=== PATIENT | female | born 1950 | race Caucasian/White ===

== ENCOUNTER → 2017-03-03 08:44 | Outpatient (CLI) | payer OTHER, MEDICARE ==
[2016-08-20 14:01] VITALS: BMI 32.5
[~2017-03-03 08:44] MED LIST: BAYER CHEWABLE81 MG PO; COREG6.25 MG PO; CRESTOR10 MG PO; EFFIENT10 MG PO; FISH OIL 1,0001 CA1 PO; FORTAMET1000 MG/BO PO; GLIPIZIDE10 MG PO; KAZANO 12.5-1,1 EACH PO; KAZANO PO; KLOR-CON M2020 MEQ PO; LASIX20 MG PO; LEVOXYL100 MCG PO; LISINOPRIL10 MG PO; LISINOPRIL5 MG PO; PLAVIX75 MG PO; VYTORIN 10-40 M1 TAB PO; entresto PO
== END ==
LOC: D.MAMMO 08:44
DX: Z12.31 Encounter for screening mammogram for malignant neoplasm of breast (principal)

== ENCOUNTER → 2017-04-04 16:40 | Outpatient (CLI) | payer OTHER, MEDICARE ==
[2016-08-20 14:01] VITALS: BMI 32.5
== END | disposition home or self-care (01) ==
LOC: D.MAMMO 08:30
DX: R92.8 Other abnormal and inconclusive findings on diagnostic imaging of breast (principal)

== ENCOUNTER → 2017-10-08 13:17 | Outpatient (CLI) | payer MEDICARE ==
[2016-08-20 14:01] VITALS: BMI 32.5
== END | disposition home or self-care (01) ==
LOC: D.MAMMO 09:00
DX: R92.8 Other abnormal and inconclusive findings on diagnostic imaging of breast (principal)

== ENCOUNTER 2017-10-11 19:10 | Inpatient (IN) | payer MEDICARE | END 2017-10-16 16:20 | disposition home or self-care (01) | DRG 291 | LOC: D.ER 19:10 → D.SDCHOLD 21:07 → D.MS 21:55 → D.M2 10-12 14:45 | DX: I11.0 Hypertensive heart disease with heart failure (principal); J96.21 Acute and chronic respiratory failure with hypoxia; N17.9 Acute kidney failure, unspecified; J44.0 Chronic obstructive pulmonary disease with (acute) lower respiratory infection; J98.11 Atelectasis; I50.23 Acute on chronic systolic (congestive) heart failure; I25.5 Ischemic cardiomyopathy; E78.5 Hyperlipidemia, unspecified; K21.9 Gastro-esophageal reflux disease without esophagitis; J20.9 Acute bronchitis, unspecified; E11.65 Type 2 diabetes mellitus with hyperglycemia; E03.9 Hypothyroidism, unspecified; I25.10 Atherosclerotic heart disease of native coronary artery without angina pectoris; Z95.5 Presence of coronary angioplasty implant and graft; D64.9 Anemia, unspecified ==

== ENCOUNTER 2017-12-12 17:47 | Emergency (ER) | payer MEDICARE ==
[2017-10-13 12:21] VITALS: BMI 32.4
[~2017-12-12 17:47] MED LIST changes: +VIBRAMYCIN 100100 MG PO
== END 2017-12-12 21:02 | disposition home or self-care (01) ==
LOC: D.ER 17:47
DX: S20.219A Contusion of unspecified front wall of thorax, initial encounter (principal); V89.2XXA Person injured in unspecified motor-vehicle accident, traffic, initial encounter; Y93.89 Activity, other specified; Y92.410 Unspecified street and highway as the place of occurrence of the external cause; E11.9 Type 2 diabetes mellitus without complications; E03.9 Hypothyroidism, unspecified; I50.9 Heart failure, unspecified

== ENCOUNTER → 2018-05-26 08:41 | Outpatient (CLI) | payer MEDICARE ==
[2017-10-13 12:21] VITALS: BMI 32.4
== END | disposition home or self-care (01) ==
LOC: D.RT 08:41
DX: Z87.09 Personal history of other diseases of the respiratory system (principal); Z87.891 Personal history of nicotine dependence

== ENCOUNTER 2019-05-25 09:15 | Outpatient (CLI) | payer MEDICARE ==
[2017-10-13 12:21] VITALS: BMI 32.4
== END 2019-05-25 09:45 | disposition home or self-care (01) ==
LOC: D.MAMMO 09:15
PROVIDERS: ATTEND Clinical Nurse Specialist Family Health
DX: Z12.31 Encounter for screening mammogram for malignant neoplasm of breast (principal)

== ENCOUNTER → 2020-05-19 15:02 | Outpatient (CLI) | payer MEDICARE ==
[2017-10-13 12:21] VITALS: BMI 32.4
== END | disposition home or self-care (01) ==
LOC: D.LAB 15:02
PROVIDERS: ATTEND Internal Medicine Pulmonary Disease
DX: Z11.59 Encounter for screening for other viral diseases (principal)

== ENCOUNTER 2020-06-03 22:55 | Inpatient (IN) | payer MEDICARE ==
[~2020-06-03] VITALS: Ht 157.5 cm; Wt 81.6 kg
--- NOTE | ~2020-06-03 | HEMODYNAMI ---
PATIENT:ROYA CONNELL MEDICAL RECORD: [id number] : 50 [facility] ADMISSION DATE: 06/04/20 Generatedon:06/05/202011:13 Patient name: ROYA CONNELL Patient #: [id number] SSN: [id number] : 1950 Date of study: 06/05/2020 Page: Of Hemodynamic Procedure Report Patient Data Patient Demographics Procedure consent was obtained First Name: ROYA Gender: Female Last Name: KO : 1950 [facility] Initial: KATHARINA Age: 69 year(s) Patient #: [id number] Race: SSN: [id number] Additional ID: [id number] Contact details Address: [address] [place] [address] circle State: [place] City: [place] Zip code: [address] Past Medical History Allergies: No known allergies Admission Admission Data Admission Date: 06/04/2020 Admission Time: 0:09 Room #: D.2108 Lab Results Lab Result Date: 06/05/2020 Lab Result Time: 0:00 Biochemistry Name Units Result Min Max BUN mg/dl 37 --(----)-* 7 18 Creatinine mg/dl 1.5 --(----)-* 0.6 1.3 eGFR ml/min 36 *-(----)-- 90 120 NONAFRICAN CBC Name Units Result Min Max Hematocrit % 37.9 *-(----)-- 42 54 Hemoglobin g/dl 12.3 *-(----)-- 13.5 17.5 Procedure Procedure Types Cath Procedure Diagnostic Procedure [facility] w/Coronaries Sedation Charges Moderate Sedation up to 30 minutes Moderate Sedation up to 45 minutes Impella Impella Insertion PCI Procedure Coronary Stent Coronary Stent Initial Hemochron ACT Test Procedure Description Procedure Date Procedure Date: 06/05/2020 Procedure Start Time: 9:20 Procedure End Time: 11:10 Procedure Staff Name Function Dewey Howe MD Performing Physician Samantha Pritchett RT Monitor Philippe Colvin RN Nurse Marilyn Swift RT Scrub Procedure Data Cath Procedure Fluoroscopy Diagnostic fluoroscopy Total fluoroscopy Time: time: 18.2 min 18.2 min Diagnostic fluoroscopy Total fluoroscopy dose: dose: 1503 mGy 1503 mGy Contrast Material Contrast Material Type Amount (ml) Isovue 300 147 Entry Location Entry Primary Successful Side Size Upsize Upsize Entry Closure Almeida ccessful Closure Location (Fr) 1 (Fr) 2 (Fr) Remarks Device Remarks Radial Right 6 Fr Mechanical artery Short Compression Femoral Right 6 Fr Perclose artery Short ProGlide Estimated blood loss: 10 ml Diagnostic catheters Device Type Used For End Catheter Placement DIAGNOSTIC Samaria 110cm 5 Procedure Fr catheter ([id number]) DIAGNOSTIC JL 3.5 5Fr Left Coronary catheter (828994M) Angiography DIAGNOSTIC JL 3.5 5Fr Left Coronary catheter (340386M) Angiography DIAGNOSTIC Pigtail 5Fr LV Angiography catheter (912714T) DIAGNOSTIC Pigtail 5Fr Procedure catheter (558609V) Procedure Complications No complications Procedure Medications Medication Administration Route Dosage 0.9% NaCl I.V. 100 ml/hr Oxygen etCO2 Nasal cannula 2 l/min Heparin Flush Bag 2 bags (1000units/500ml NS) Lidocaine 2% added to field 20 Radial Cocktail added to field 1 syringe (Verapamil 2mg/Nitro 400mcg/Heparin 1500units) Versed I.V. 1 mg Fentanyl I.V. 50 mcg Radial Cocktail I.A. 1 syringe (Verapamil 2mg/Nitro 400mcg/Heparin 1500units) Fentanyl I.V. 50 mcg Heparin Bolus I.V. 5000 units Versed I.V. 1 mg Integrilin (Bolus I.V. 7.3 ml 2mg/ml) Integrilin (Bolus I.V. 2.7 ml 2mg/ml) Plavix P.O. 600 mg Hemodynamics Rest HGB: 12.3 (g/dl) Heart Rate: 65 (bpm) Pressure Samples Time Site Value (mmHg) Purpose Heart Use Rate(bpm) 9:37 LV 107/7,8 Snapshot 72 Gradients Valve Time Site Site Mean SEP/DFP Peak To Heart Use 1 2 (mmHg) (sec/min) Peak Rate (mmHg) (bpm) Aortic 9:37 LV AO 73 Snapshots Pre Cath Intra NCS Post Cath Vital Signs Time Heart Resp SPO2 etCO2 NIBP (mmHg) Rhythm Pain Sedation Rate (ipm) (%) (mmHg) Status Level (bpm) 9:15:21 66 14 100 36.2 130/65(110) NSR 0 (11) 10(A) , No pain 9:19:39 68 12 97 37.7 115/61(88) NSR 0 (11) 10(A) , No pain 9:23:55 66 19 99 3.7 110/59(73) NSR 0 (11) 10(A) , No pain 9:28:15 64 17 99 42.3 108/51(83) NSR 0 (11) 10(A) , No pain 9:32:29 62 12 100 40 94/52(74) NSR 0 (11) 10(A) , No pain 9:36:39 74 12 100 34 96/61(77) NSR 0 (11) 10(A) , No pain 9:40:49 71 12 100 40.8 99/66(80) NSR 0 (11) 10(A) , No pain 9:45:03 74 10 100 41.5 103/58(74) NSR 0 (11) 10(A) , No pain 9:49:13 59 12 100 15.1 103/54(72) NSR 0 (11) 10(A) , No pain 9:53:25 59 12 100 41.6 100/51(70) NSR 0 (11) 10(A) , No pain 9:57:37 59 14 100 40.8 105/51(93) NSR 0 (11) 10(A) , No pain 10:01:51 59 11 100 44.5 101/50(80) NSR 0 (11) 10(A) , No pain 10:06:03 80 11 100 44.5 101/53(89) NSR 0 (11) 10(A) , No pain 10:10:14 60 10 100 36.2 92/51(85) NSR 0 (11) 10(A) , No pain 10:14:29 60 12 100 13.6 107/50(89) NSR 0 (11) 10(A) , No pain 10:18:40 56 11 100 37 96/49(61) NSR 0 (11) 10(A) , No pain 10:22:57 61 11 100 25.7 99/48(65) NSR 0 (11) 9(A) , No pain 10:27:06 66 12 100 16.6 103/68(84) NSR 0 (11) 9(A) , No pain 10:31:18 64 11 100 0.7 108/65(87) NSR 0 (11) 9(A) , No pain 10:35:32 64 12 100 9.8 110/65(88) NSR 0 (11) 9(A) , No pain 10:39:44 67 13 100 17.4 120/73(100) NSR 0 (11) 9(A) , No pain 10:43:58 67 13 100 40 134/78(105) NSR 0 (11) 9(A) , No pain 10:48:20 61 13 100 37.8 133/61(105) NSR 0 (11) 9(A) , No pain 10:52:40 60 10 100 37.8 124/63(99) NSR 0 (11) 9(A) , No pain 10:56:52 64 15 100 39.3 120/70(104) NSR 0 (11) 10(A) , No pain 11:01:12 63 13 100 37.8 118/64(100) NSR 0 (11) 10(A) , No pain 11:05:26 64 12 100 40 137/74(110) NSR 0 (11) 10(A) , No pain 11:09:49 59 13 100 37 136/73(114) NSR 0 (11) 10(A) , No pain Medications Time Medication Route Dose Verified Delivered Reason Not es Effectiveness by by 9:15:10 0.9% NaCl I.V. 100 Philippe Philippe Per physician ml/hr Vinicius Colvin RN RN 9:15:23 Oxygen etCO2 2 l/min Philippe Philippe for low 02 sats Nasal Lorigan Lorigan cannula RN RN 9:15:33 Heparin Flush 2 bags Philippe Philippe used for Bag Lorigan Lorigan procedure (1000units/500ml RN RN NS) 9:15:43 Lidocaine 2% added 20ml Philippe Philippe for local to vial Lorigan Lorigan anesthetic field RN RN 9:15:54 Radial Cocktail added 1 Philippe Philippe used for (Verapamil to syringe Lorigan Lorigan procedure 2mg/Nitro field RN RN 400mcg/Heparin 1500units) 9:21:02 Versed I.V. 1 mg Philippe Philippe for sedation Vinicius Colvin RN RN 9:21:11 Fentanyl I.V. 50 mcg Philippe Philippe for sedation Vinicius Colvin RN RN 9:23:07 Radial Cocktail I.A. 1 Philippe Dewey for (Verapamil syringe Lorigan Hurst vasodilation 2mg/Nitro RN 400mcg/Heparin 1500units) 9:46:21 Fentanyl I.V. 50 mcg Philippe Philippe for sedation Vinicius Colvin RN RN 9:46:32 Heparin Bolus I.V. 5000 Philippe Philippe for units Vinicius Colvin anticoagulation RN RN 10:03:11 Versed I.V. 1 mg Philippe Philippe for sedation Vinicius Colvin RN RN 10:19:42 Integrilin I.V. 7.3 ml Philippe Philippe for (Bolus 2mg/ml) Vinicius Colvin antiplatelet RN RN therapy 10:19:54 Integrilin I.V. 2.7 ml Philippe Philippe to sharp's (Bolus 2mg/ml) Vinicius Colvin RN RN 11:03:30 Plavix P.O. 600 mg Philippe Philippe for Vinicius Colvin antiplatelet RN RN therapy Procedure Log Time Note 8:30:24 Informed consent obtained and on chart 8:32:34 Lab Result : eGFR NONAFRICAN 36 ml/min 8:32:34 Lab Result : Creatinine 1.5 mg/dl 8:32:34 Lab Result : BUN 37 mg/dl 8:32:34 Lab Result : Hematocrit 37.9 % 8:32:34 Lab Result : Hemoglobin 12.3 g/dl 8:33:00 Procedure Status Urgent Heart Cath (IP). 8:33:04 Time tracking: Regular hours (M-F 7:00 - 5:00) 8:33:20 Patient allergic to No known allergies 8:42:50 Lab results completed and on chart. 8:42:56 Risk of Mortality: 0.9 8:43:02 Risk of blood transfusion: 3.8 8:43:07 Risk of KAYLYNN: 4.3 8:53:42 Philippe Colvin RN sent for patient. Start room use. 8:53:50 Plan of Care:Hemodynamics will remain stable., Cardiac rhythm will remain stable., Comfort level will be maintained., Respiratory function will remain adequate., Patient/ family verbilizes understanding of procedure., Procedure tolerated without complication., Recovers from procedure without complications.. 9:13:53 Patient received from Med II to CCL 1 Alert and oriented. Tansferred to table in Supine position. 9:13:59 Warm blankets applied, and inderjit hugger turned on for patient comfort. 9:14:00 Correct patient and procedure confirmed by team. 9:14:02 ECG and BP/O2 sat monitors applied to patient. 9:14:04 Vital chart was started 9:14:19 Baseline sample Acquired. 9:14:30 Rhythm: sinus rhythm 9:14:33 Full Disclosure recording started 9:14:34 - 9:14:41 H&P Date Dictated: 06/05/2020 Within 30 days and on chart., ER History o n chart.. 9:14:43 Pre-procedure instructions explained to patient. 9:14:44 Pre-op teaching completed and patient verbalized understanding. 9:14:46 Family unavailable. 9:14:48 Patient NPO since Midnight. 9:14:56 Is the patient allergic to Iodine/contrast media? No. 9:14:59 Was the patient premedicated? Yes 9:15:02 Is patient on blood thinner?No 9:15:05 Patient diabetic? Yes. 9:15:07 If diabetic: On Metformin? Yes 9:15:10 0.9% NaCl 100 ml/hr I.V. was administered by Philippe Colvin RN; Per physician; Verbal order read back and verified. 9:15:12 If on Metformin: Last Dose? 06/03/2020 9:15:15 ----Pre-sedation anethsthesia assessment.---- 9:15:20 Previous problem with sedation/anesthesia? No ? 9:15:23 Oxygen 2 l/min etCO2 Nasal cannula was administered by Philippe Colvin RN; for low 02 sats; Verbal order read back and verified. 9:15:33 Heparin Flush Bag (1000units/500ml NS) 2 bags was administered by Philippe Colvin RN; used for procedure; Verbal order read back and verified. 9:15:35 Snore? Yes 9:15:37 Sleep apnea? Yes 9:15:39 Deviated septum? No 9:15:42 Opens mouth fully? Yes 9:15:43 Lidocaine 2% 20ml vial added to field was administered by Philippe Colvin RN; for local anesthetic; Verbal order read back and verified. 9:15:44 Sticks out tongue? Yes 9:15:51 Airway obstruction? Yes copd 9:15:54 Radial Cocktail (Verapamil 2mg/Nitro 400mcg/Heparin 1500units) 1 syring e added to field was administered by Philippe Colvin RN; used for procedure; Verbal order read back and verified. 9:15:57 Dentures? No ? 9:16:04 Pre procedure: right dorsailis pedis pulse 1+ Palpable, but thready & weak; easily obliterated 9:16:11 IV patent on arrival in right antecubital with 0.9% NaCl at KVO. 9:16:19 Right Radial & Right Groin area was prepped with chlora-prep and draped in sterile fashion 9:16:23 Alarms reviewed by R. N. 9:16:24 Sharps counted by scrub and verified by R.N. 9:16:29 Physician arrived 9:16:29 --------ALL STOP TIME OUT------ 9:16:30 Final Timeout: patient, procedure, and site verified with staff and physician. All members of the team are in agreement. 9:16:34 Right Radial & Right Groin site verified by team. 9:16:39 Fire Safety Assessment: A--An alcohol-based skin anteseptic being used preoperatively., C--Open oxygen or nitrous oxide is being used., D--An ESU, laser, or fiber-optic light is being used. 9:16:43 Physical assessment completed. ASA score P 2 - A patient with mild systemic disease as per Dewey Howe MD. 9:16:50 3b) 30-44 Moderately reduced kidney function. 9:16:54 Maximum allowable contrast dose (3.7 X eGFR X 0.75)100 ml. 9:16:59 Sedation plan: IV Moderate Sedation Medication:Versed, Fentanyl 9:17:08 Use device set Radial Dx or PCI 9:17:10 ACIST Syringe (99632) opened to sterile field. 9:17:10 Medline Cath Pack ([id number]) opened to sterile field. 9:17:11 Bag Decanter (2002) opened to sterile field. 9:17:13 ACIST Hand Control (90185) opened to sterile field. 9:17:13 ACIST Manifold (02072) opened to sterile field. 9:17:14 MBrace Wrist Support ([id number]) opened to sterile field. 9:17:16 EMERALD Guide Wire (351-827) opened to sterile field. 9:17:17 SHEATH 6FR RAIN (8306291) opened to sterile field. 9:20:38 Procedure started. 9:20:58 Local anesthetic to right femoral artery with Lidocaine 2% by Dewey Mcginnis MD.INITIAL ACCESS ONLY 9:21:02 Versed 1 mg I.V. was administered by Philippe Colvin RN; for sedation; Verbal order read back and verified. 9:21:09 Zero performed for pressure channel P1 9:21:11 Fentanyl 50 mcg I.V. was administered by Philippe Colvin RN; for sedation; Verbal order read back and verified. 9:21:28 Zero performed for pressure channel P1 9:22:52 A 6 Fr Short sheath was inserted into the Right Radial artery 9:23:07 Radial Cocktail (Verapamil 2mg/Nitro 400mcg/Heparin 1500units) 1 syring e I.A. was administered by Dewey Howe MD; for vasodilation; Verbal order read back and verified. 9:23:34 A DIAGNOSTIC Samaria 110cm 5 Fr catheter (202563) was advanced over the wire and used for Procedure. 9:26:29 RCA angiography performed. 9:26:56 Injector settings: Ml/sec: 3, Volume: 6, 9:27:52 Catheter removed. 9:28:35 GUIDE 6FR XBLAD 3.5 catheter ([id number]) opened to sterile field. 9:29:31 Catheter removed. 9:30:11 A DIAGNOSTIC JL 3.5 5Fr catheter ([id number]) was advanced over the wire and used for Left Coronary Angiography. 9:31:56 Catheter removed. 9:32:08 SHEATH 6FR [place] (IFZ328) opened to sterile field. 9:32:27 Local anesthetic to right femoral artery with Lidocaine 2% by Dewey Mcginnis MD.ADDITIONAL ACCESS 9:33:41 A 6 Fr Short sheath was inserted into the Right Femoral artery 9:34:17 A DIAGNOSTIC JL 3.5 5Fr catheter (991938S) was advanced over the wire and used for Left Coronary Angiography. 9:34:36 LCA angiography performed. 9:34:42 Injector settings: Ml/sec: 3, Volume: 6, 9:36:21 Catheter removed. 9:36:30 A DIAGNOSTIC Pigtail 5Fr catheter (272483W) was advanced over the wire and used for LV Angiography. 9:36:46 Injector settings: Ml/sec: 5, Volume: 15, 9:36:52 LV gram done using ROJAS 9:39:20 EF : 20 % 9:39:22 LV hemodynamics recorded. 9:40:04 Catheter removed. 9:40:59 Injector settings: Ml/sec: 3, Volume: 6, 9:41:28 AN INJECTION IS MADE THRU THE RIGHT FEMERAL SHEATH. 9:45:19 Impella CP (with Smart Assist) opened to sterile field. 9:46:21 Fentanyl 50 mcg I.V. was administered by Philippe Colvin RN; for sedation; Verbal order read back and verified. 9:46:30 GUIDE 6FR HS I SH catheter ([id number]) opened to sterile field. 9:46:32 Heparin Bolus 5000 units I.V. was administered by Philippe Colvin RN; for anticoagulation; Verbal order read back and verified. 9:46:32 INFLATOR Merit BasixCompak (OE9088) opened to sterile field. 9:46:43 Tegaderm 4 x 4 (1626W) opened to sterile field. 9:47:38 WHISPER 300cm guide wire (3653846LD) opened to sterile field. 9:48:49 PERCLOSE Proglide 6FR ( 72093516) opened to sterile field. 9:48:50 PERCLOSE Proglide 6FR ( 38169149) opened to sterile field. 9:49:30 Prior to Impella insertion patient anticoagulated with HEPRIN. 9:50:47 GUIDEWIRE IS INSERTED AND THE SHEATH IS REMOVED TO ADVANCE PERCLOSE DEVICE. 9:54:37 IMPELLA REP: GAVINO HALL IS AT BEDSIDE FOR PROCEDURE. 10:03:11 Versed 1 mg I.V. was administered by Pihlippe Colvin RN; for sedation; Verbal order read back and verified. 10:03:30 FIRST PERCLOSE IS INPLACE. 10:06:57 AMPLATZ WIRE INSERTED. 10:07:05 THE SECOND PERCLOSE DEVICE IS LOADED OVER WIRE AND ADVANCED. 10:10:03 THE SECOND PERCLOSE IS INPLACE FOR END OF PROCEDURE. 10:11:45 FEMORAL ACCESS IS DILATED FOR THE ADVANCEMENT OF THE 14 STATELESS SHEATH. 10:14:03 ACT drawn and resulted at ? seconds. (normal therapeutic range 180-240 seconds). 10:15:39 A DIAGNOSTIC Pigtail 5Fr catheter (333093K) was advanced over the wire and used for Procedure. 10:15:52 EMERALD Guide Wire (931-250) opened to sterile field. 10:17:27 ACT drawn and resulted at 258 seconds. (normal therapeutic range 180-24 0 seconds). 10:19:42 Integrilin (Bolus 2mg/ml) 7.3 ml I.V. was administered by Philippe Colvin RN; for antiplatelet therapy; Verbal order read back and verified. 10:19:54 Integrilin (Bolus 2mg/ml) 2.7 ml I.V. was administered by Philippe Colvin RN; to sharp's; Verbal order read back and verified. 10:20:07 THE J WIRE IS REMOVED AND REPLACED WITH THE 0.18WIRE. 10:21:08 THE PIGTAIL IS REMOVED AND THE IMPELLA IS ADVANCED. 10:22:49 SHEATH 7FR [place] (BIC985) opened to sterile field. 10:24:31 THE WIRE IS REMOVED. 10:25:03 Impella set at AUTO and flow rate. 10:25:16 Impella pressure set to AUTO and placement confirmed with Flouro and console waveform. 10:27:43 7 FRECH SHEATH IS INSERTED INTO THE IMPELLA SHEATH. 10:28:22 ACC Pre-intervention JOYCE Flow is 3. 10:28:39 6 Fr HSI SH guide catheter was inserted over the wire 10:28:53 Pre PCI Site: [place] pRCA has 95% stenosis. 10:30:53 BMW 300cm [place] 2 J wire ([id number]) opened to sterile field. 10:31:36 NVL824 wire advanced. 10:32:11 Wire advanced across lesion. 10:35:24 Inflate balloon Inflation number: 1 A EUPHORA 3.0 x 15 Balloon ([id number]) was prepped and advanced across the Prox RCA , then inflated to 4 HELGA for 0:24 (min:sec) . 10:35:33 Balloon removed over the wire. 10:38:22 Place stent Inflation Number: 2 A JENARO OTW 3.5 x 12 stent ([id number]) was prepped and advanced across the Prox RCA . The stent was deployed at 18 HELGA for 0:33 (min:sec) . 10:39:00 Stent catheter was removed intact over wire. 10:42:14 Inflate balloon Inflation number: 3 A NC EUPHORA 4.0 x 12 balloon ([id number]) was prepped and advanced across the Prox RCA , then inflated to 12 HELGA for 0:16 (min:sec) . 10:42:35 Inflation number: 4 The NC EUPHORA 4.0 x 12 balloon ([id number]) was reinflated across the Prox RCA , to 18 HELGA for 0:13 (min:sec) . 10:42:55 Inflation number: 5 The NC EUPHORA 4.0 x 12 balloon ([id number]) was reinflated across the Prox RCA , to 14 HELGA for 0:12 (min:sec) . 10:43:54 Inflation number: 6 The NC EUPHORA 4.0 x 12 balloon ([id number]) was reinflated across the Prox RCA , to 18 HELGA for 0:20 (min:sec) . 10:44:42 Balloon removed over the wire. 10:44:58 Wire removed. 10:44:59 Guide catheter removed. 10:45:54 THE 7 FRECH SHEATH IS REMOVED FROM THE IMPELLA SHEATH. 10:46:06 Post PCI Site: [place] pRCA has 0% stenosis. 10:46:10 ACC Post-intervention JOYCE Flow is 3. 10:47:26 IMPELLA IS REMOVED AFTER STEP DOWN. 10:48:41 THE J WIRE IS REINSERTED INTO THE SHEATH. 10:55:20 THE FIRST PERCLOSE SUTURE IS TIED IN PLACE AND THE 14 STATELESS SHEATH IS REMOVE. 10:58:58 tHE SECOND PERCLOSE KNOT IS ADVANCED AND THE WIRE IS REMOVED. 11:00:46 Sheath removed intact; hemostasis achieved with Perclose ProGlide to th e Right Femoral artery. 11:01:01 ZEPHYR REGULAR TR BAND (213916) opened to sterile field. 11:01:51 Sheath removed intact; hemostasis achieved with Mechanical Compression to the Right Radial artery. 11:01:56 Procedure ended.(Physican Out) 11:02:04 Fluoroscopy time 18.20 minutes. 11:02:10 Flurop Dose total: 1503 11:02:10 Fluoroscopy dose: 1503 mGy 11:02:37 Dose Area Product 05080 mGy/cm. 11:02:57 Contrast amount:Isovue 300 147ml. 11:03:01 Maximum allowable dose exceeded? Yes. 11:03:03 Sharps counted by scrub and verified by R.N. 11:03:07 Hyampom band inflated with 10cc of air. 11:03:13 Post-op/insertion site Right Femoral artery dressed using a 4 x 4 and Tegaderm. 11:03:23 Post right femoral artery:stable 11:03:28 Post-procedure physical assessment completed. ASA score P 2 - A patient with mild systemic disease as per Dewey Howe MD. 11:03:30 Plavix 600 mg P.O. was administered by Philippe Colvin RN; for antiplatelet therapy; Verbal order read back and verified. 11:03:33 Post procedure rhythm: unchanged. 11:03:38 Estimated blood loss: 10 ml 11:03:40 Post procedure instruction explained to patient.Patient verbalizes understanding. 11:03:41 Patient needs reinforcement of post procedure teaching. 11:07:14 Procedure type changed to Cath procedure, Diagnostic procedure, LHC, LH C w/Coronaries, Sedation Charges, Moderate Sedation up to 30 minutes, Moderate Sedation up to 45 minutes, Impella, Impella Insertion, PCI procedure, Coronary Stent, Coronary Stent Initial, Hemochron ACT Test 11:07:17 Procedure and supply charges have been captured, reviewed, submitted an d are correct. 11:09:37 Procedure Complication : No complications 11:09:41 Vital chart was stopped 11::43 [facility] Findings: MVD- PCI performed (see procedure note) 11:09:46 See physician's report for complete and final results. 11:09:49 Report given to [facility]. 11:09:54 Patient transfered to [facility] with Bed. 11:10:39 Procedure ended. 11:10:39 Full Disclosure recording stopped 11:11:21 ACC-PCI Only Patient was given prescriptions, or instructed by Dewey Howe MD to start/continue the following medications upon discharge: Plavix 11:11:23 End room use (Document Last) Intervention Summary Intervention Notes Time ActionType Lesion and Equipment Action# Pressure Duration Attributes Used 10:35:24 Inflate Prox RCA EUPHORA 3.0 x 1 4 00:24 balloon 15 Balloon ([id number]) 10:38:22 Place stent Prox RCA JENARO OTW 3.5 2 18 00:33 x 12 stent ([id number]) 10:42:14 Inflate Prox RCA NC EUPHORA 3 12 00:16 balloon 4.0 x 12 balloon ([id number]) 10:42:35 Reinflate Prox RCA NC EUPHORA 4 18 00:13 balloon 4.0 x 12 balloon ([id number]) 10:42:55 Reinflate Prox RCA NC EUPHORA 5 14 00:12 balloon 4.0 x 12 balloon ([id number]) 10:43:54 Reinflate Prox RCA NC EUPHORA 6 18 00:20 balloon 4.0 x 12 balloon ([id number]) Device Usage Item Name Manufacture Quantity Catalog [facility] Lot# / Number Charge Number Stock Stock Serial# Code ACIST Syringe Acist 1 02267 001560 020900 837452 20 (27992) Medical Systems Inc Medline Cath Medline 1 [id number] 652274 11941 214911 5 Pack ([id number]) Bag Decanter Microtek 1 156940 17078 734813 5 () Medical Inc. ACIST Hand Acist 1 46771 953188 762732 131200 5 Control Medical (23431) Systems Inc ACIST Acist 1 98859 342866 521451 097160 5 Manifold Medical (46249) Systems Inc MBrace Wrist Advanced 1 140-0250-00 031918 21495 117793 5 Support Vascular (975253550) Dynamics EMERALD Guide Cardinal 2 502-455 079334 185032 948754 5 Wire Health (502-455) SHEATH 6FR Cardinal 1 6810213 776430 4440182 391855 5 [facility] Health (8925507) DIAGNOSTIC Terumo 1 40-5013 154445 777786 568013 5 Samaria 110cm 5 Fr catheter (047398) GUIDE 6FR Cardinal 1 86554158 128253 594795 570709 10 XBLAD 3.5 Health catheter (95722560) DIAGNOSTIC JL Cardinal 1 579543A 920184 581176 506939 5 3.5 5Fr Health catheter (405396F) SHEATH 6FR Terumo 1 RCC318 192762 062760 139175 40 [place] (LTZ049) DIAGNOSTIC Cardinal 2 950664O 215031 661012 845745 5 Pigtail 5Fr Health catheter (886396K) Impella CP ABIOMED 1 316548 183760 5370-0003 2 3 (with Smart Assist) GUIDE 6FR HS Medtronic 1 [id number] 688728 27204 016175 1 I SH catheter ([id number]) INFLATOR [facility] 1 WJ1147 912280 255192 785775 15 [facility] Medical BasixCompak (WV7076) Tegaderm 4 x 3M 1 1626W 521402 495885 848283 5 4 (1626W) WHISPER 300cm Jackson 1 [id number] 804301 017250 386117 5 guide wire Vascular (3665611QR) PERCLOSE Jackson 2 54090-406 367624 834534 801250 5 Proglide 6FR Vascular ( 14901633) SHEATH 7FR Terumo 1 IEW508 655587 639351 322442 5 [place] (IQU095) BMW 300cm Jackson 1 [id number] 601203 758771 248411 5 [place] 2 J Vascular wire (7499243S) EUPHORA 3.0 x Medtronic 1 [id number] 066039 161159 122204 5 [id number] 15 Balloon ([id number]) JENARO OTW 3.5 Medtronic 1 [id number] 033174 9400497 843281 5 [id number] x 12 stent ([id number]) NC EUPHORA Medtronic 1 [id number] 371498 891598 346205 1 [id number] 4.0 x 12 balloon ([id number]) ZEPHYR Cardinal 1 842387 686846 1532801 605790 5 REGULAR TR Health BAND (748072) Signature Audit [place] Stage Time Signature Unsigned Intra-Procedure 06/05/2020 Samantha Pritchett 11:11:58 AM RT(R) (CV) Intra-Procedure 06/05/2020 Philippe Colvin RN 11:12:44 AM Intra-Procedure 06/05/2020 Dewey Howe MD 11:13:19 AM [facility] [address] [place] [address]
--- NOTE | ~2020-06-03 | OP ---
PATIENT NAME: ROYA CONNELL MEDICAL RECORD: [id number] :50 LOCATION:[facility] ADMISSION DATE:06/04/20 SURGEON: LINDA AGUILAR MD DATE OF OPERATION: 06/05/2020 Addendum After stent was deployed, we postdilated with a 4.0 x 15 mm Euphora noncompliant balloon up to 16 and 18 atmospheres to ensure adequate expansion post-stent deployment. TRANSINT:[id number] Voice Confirmation ID: [id number] DOCUMENT ID: [id number] LINDA AGUILAR MD CC: [id number] DICTATION DATE: 06/06/20 1301 CATALYST SUPERVISOR: 06/06/20 2300 DIS IN 06/05/20 [facility] [address] [place] [id number]
[2020-06-03 23:16] LABS: HEMATOCRIT 41.1 % (36.0-48.0); HEMOGLOBIN 13.7 g/dL (12-16); LYMPHOCYTES 39.5 % (15-50); MCH 28.6 pg (26.0-34.0); MCHC 33.3 g/dL (31.0-37.0); MCV 85.8 fL (80.0-100.0); MEAN PLATELET VOLUME 10.7 fL (7.4-10.4); NEUTROPHILS 57.8 % (40-80); RBC 4.79 10x6/uL (4.00-5.40); RDW 14.1 % (11.5-14.5); WBC 11.2 10x3/uL (4.8-10.8)
[2020-06-03 23:19] LABS: PLATELET COUNT 313 10x3/uL (130-400)
[2020-06-03 23:26] VITALS: BP 181/83
[2020-06-03 23:26] LABS: CALC OSMOLALITY 283 mosm/kg (275-300); CALCIUM 8.8 mg/dL (8.5-10.1); CHLORIDE - SERUM 105 mmol/L (98-107); CREATININE - SERUM 1.1 mg/dL (0.6-1.3); GLUCOSE 210 mg/dL (74-106); POTASSIUM - SERUM 4.2 mmol/L (3.5-5.1); SODIUM 138 mmol/L (136-145); UREA NITROGEN 19 mg/dL (7-18); eGFR NON AFRICAN AMERICAN 52 mL/min (90-120)
[2020-06-03 23:41] LABS: APTT 26.7 SECONDS (22.8-39.4); INR 0.88 (0.85-1.17); PROTIME 11.9 SECONDS (11.6-15.0)
[2020-06-03 23:44] LABS: ALBUMIN 3.7 g/dL (3.4-5.0); ALKALINE PHOSPHATASE 113 U/L (30-120); ALT (SGPT) 17 U/L (10-68); BILIRUBIN - TOTAL 0.46 mg/dL (0.2-1.3); CKMB 1.4 U/L (0.0-3.6); CREATINE KINASE 148 UL (21-215); MAGNESIUM - SERUM 1.9 mg/dL (1.8-2.4); PRO BNP 1102 pg/mL (0-125); PROTEIN - SERUM 8.1 g/dL (6.4-8.2); THYROID STIMULATING HORMONE 15.06 uIU/mL (0.36-3.74); TROPONIN-I < 0.017 ng/mL (0.000-0.060)
[2020-06-03 23:48] VITALS: BP 138/59
[2020-06-03 23:48] LABS: D-DIMER-QUANTITATIVE 2.37 ug/mLFEU (0.20-0.54)
[2020-06-04] VITALS (9 sets, daily range): BP systolic 98–157; BP diastolic 49–75
--- NOTE | 2020-06-04 01:15 | NUR ---
REPORT TO LA HOOKS
--- NOTE | 2020-06-04 01:18 | NUR ---
ROCEPHIN INFUSION COMPLETE
[2020-06-04 06:56] LABS: CKMB 3.4 U/L (0.0-3.6); CREATINE KINASE 76 UL (21-215)
[2020-06-04 06:57] LABS: TROPONIN-I 0.714 ng/mL (0.000-0.060)
--- NOTE | 2020-06-04 07:00 | NUR ---
REPORT FROM LA GUILLERMO, PATIENT CARE TAKEN OVER AT THIS TIME
--- NOTE | 2020-06-04 07:30 | NUR ---
PT PROVIDED BREAKFAST TRAY AT THIS TIME.
[2020-06-04 10:05] LABS: BASOPHILS 0.4 % (0-2); HEMATOCRIT 39.2 % (36.0-48.0); HEMOGLOBIN 12.8 g/dL (12-16); IMMATURE GRANULOCYTES 0.1 % (0-5); LYMPHOCYTES 19.2 % (15-50); MCH 28.1 pg (26.0-34.0); MCHC 32.7 g/dL (31.0-37.0); MEAN PLATELET VOLUME 10.5 fL (7.4-10.4); MONOCYTES 4.8 % (2-11); NEUTROPHILS 74.5 % (40-80); RBC 4.56 10x6/uL (4.00-5.40); RDW 14.3 % (11.5-14.5)
[2020-06-04 10:07] LABS: PLATELET COUNT 235 10x3/uL (130-400); WBC 7.3 10x3/uL (4.8-10.8)
--- NOTE | 2020-06-04 11:10 | NUR ---
DR AGUILAR AT THE BEDSIDE
[2020-06-04 12:42] LABS: ALT (SGPT) 15 U/L (10-68); CALC OSMOLALITY 285 mosm/kg (275-300); CALCIUM 8.6 mg/dL (8.5-10.1); CARBON DIOXIDE 23.6 mmol/L (21.0-32.0); CHLORIDE - SERUM 103 mmol/L (98-107); CHOLESTEROL, TOTAL 294 mg/dL (0-200); CREATININE - SERUM 1.2 mg/dL (0.6-1.3); GLUCOSE 209 mg/dL (74-106); HDL CHOLESTEROL 37 mg/dL (32-96); POTASSIUM - SERUM 4.2 mmol/L (3.5-5.1); SODIUM 138 mmol/L (136-145); UREA NITROGEN 23 mg/dL (7-18); eGFR NON AFRICAN AMERICAN 47 mL/min (90-120)
[2020-06-04 12:43] LABS: TRIGLYCERIDE 503 mg/dL (30-200)
[2020-06-04 13:02] LABS: CKMB 3.4 U/L (0.0-3.6); CREATINE KINASE 79 UL (21-215); TROPONIN-I 0.786 ng/mL (0.000-0.060)
--- NOTE | 2020-06-04 15:09 | NUR ---
SPOKE WITH DR. AGUILAR ABOUT BUMEX DRIP, ORDER TO STOP DRIP FOR NOW
--- NOTE | 2020-06-04 18:33 | NUR ---
PT SITTING ON BED. VITALS OBTAINED, STABLE, AND DOCUMENTED. RR EVEN AND UNLABORED ON RA. DENIES NEEDS OR PAIN AT THIS TIME. IV NOTED TO RIGHT AC, SL. CALL LIGHT WITHIN REACH. BED IN LOWEST POSITION. ORIENTED TO ROOM. WILL CONTINUE TO MONITOR.
[2020-06-05] VITALS: BP 114/56
--- NOTE | 2020-06-05 03:29 | NUR ---
I have reviewed this patient and I concur with the Shift Assessment completed by the Licensed Practical Nurse today this shift.
[2020-06-05 04:35] VITALS: BP 118/53
[2020-06-05 04:50] VITALS: BP 114/56; BMI 33.0
[2020-06-05 07:43] LABS: ALBUMIN 3.4 g/dL (3.4-5.0); ANION GAP 12.2 mmol/L (8-16); BILIRUBIN - TOTAL 0.29 mg/dL (0.2-1.3); CALCIUM 8.7 mg/dL (8.5-10.1); CARBON DIOXIDE 28.5 mmol/L (21.0-32.0); CREATININE - SERUM 1.5 mg/dL (0.6-1.3); POTASSIUM - SERUM 3.7 mmol/L (3.5-5.1); PROTEIN - SERUM 7.2 g/dL (6.4-8.2)
[2020-06-05 07:46] LABS: BASOPHILS 0.4 % (0-2); HEMATOCRIT 37.9 % (36.0-48.0); HEMOGLOBIN 12.3 g/dL (12-16); LYMPHOCYTES 22.9 % (15-50); MCHC 32.5 g/dL (31.0-37.0); MCV 86.3 fL (80.0-100.0); MEAN PLATELET VOLUME 10.2 fL (7.4-10.4); MONOCYTES 6.2 % (2-11); NEUTROPHILS 66.5 % (40-80); PLATELET COUNT 255 10x3/uL (130-400); RBC 4.39 10x6/uL (4.00-5.40); RDW 14.2 % (11.5-14.5); WBC 7.6 10x3/uL (4.8-10.8)
[2020-06-05 09:39] VITALS: BP 117/48
--- NOTE | 2020-06-05 10:38 | NUR ---
PT AWAKE AND ORIENED WHEN I ENTERED THIS AM, TOOK ALL MEDICATIONS WITHOUT COMPLICATIONS. PREOPPED FOR POULTRY DRESSING WORKER. WAS TAKEN SHORLTY AFTER. OF 1015 POULTRY DRESSING WORKER REPORTED THEY HAD NO BEGUN YET. PT REPORTED NO CHEST PAIN OR DISCOMFORT.
[2020-06-05 12:00] VITALS: BP 138/63
[2020-06-05] MEDS ORDERED: ZOCOR20 MG PO (12:40)
[2020-06-05] MEDS ORDERED: PLAVIX75 MG PO (12:43)
[2020-06-05 12:46] VITALS: Ht 157.5 cm; Wt 81.6 kg
--- NOTE | 2020-06-05 16:35 | NUR ---
PT AWAKE AND ORIENTED, ESCORTED OUT VIA WHEELCHIAR TO POV. BROTHER DRIVING.
--- NOTE | 2020-06-05 17:17 | MORECARE ---
CASE MANAGEMENT DISCHARGE SUMMARY PATIENT: ROYA CONNELL UNIT: [id number] ADM DATE: 06/04/20 AGE: 69 : 50 SEX: F ROOM/BED: D.4779 AUTHOR: AYDEE HICKMAN PHYSICIAN: REFERRING PHYSICIAN: ASHLEY CARTER MD DATE OF SERVICE: 06/05/20 Discharge Plan Patient Name: ROYA CONNELL Facility: [facility]:[place] : 1950 Planned Disposition: Home Anticipated Discharge Date: 06/04/20 Discharge Date: 06/05/2020 Expected LOS: 1 Initial Reviewer: [email or web address] Initial Review Date: 06/04/2020 Generated: 06/05/20 6:17 pm Patient Name: ROYA CONNELL Page [phone] at 1717 All edits/amendments must be made on the electronic document DICTATION DATE: 06/05/201716 GENERAL REPAIRER: WALE 06/05/201716 RPT#: [id number] DC DATE:06/05/20 STATUS: DIS IN [facility] [address] [place] [address] END OF REPORT
--- NOTE | 2020-06-06 08:59 | CN ---
PATIENT NAME:ROYA CONNELL MEDICAL RECORD: [id number] : 50 LOCATION:DBk D.2108 ADMIT DATE: 06/04/20 ACCOUNT: [id number] CONSULTING PHYSICIAN: LINDA AGUILAR MD REFERRING PHYSICIAN: ASHLEY CARTER MD DATE OF CONSULTATION: 06/04/2020 HISTORY OF PRESENT ILLNESS: A 69-year-old female with a known history of coronary artery disease, status post intervention via Dr. Field, most recently in 2018, doing fairly well until recently, chest tightness and pressure with exertion, heaviness in the chest, had a rest symptomology on date of admission, presented to the ER, was found to have EKG changes from previous. We are asked to see her concerning her cardiovascular status. PAST MEDICAL HISTORY: Includes: 1. History of hypertension. 2. Hyperlipidemia. 3. Coronary artery disease as described above. 4. Hypothyroidism, on replacement. ALLERGIES: None known. MEDICATIONS: Carvedilol 6.25 b.i.d., Entresto 26/24 b.i.d., aspirin 81 every day, Lasix 40 every day, potassium supplementation, metformin 1 gram b.i.d., and Synthroid 100 mcg every day. SOCIAL HISTORY: Nonsmoker, nondrinker. Stays quite active. Easily takes care of all her ADLs, does try to walk on occasion. REVIEW OF SYSTEMS: The patient reports easy bruising but reports no swollen glands. The patient reports no fever, no night sweats, no significant weight gain, no significant weight loss. No significant exercise tolerance. The patient reports no dry eyes, no irritation, no vision change. Patient reports no difficulty hearing and no ear pain. Patient reports no frequent nose bleeds or nose and sinus problems. Patient reports on arm pain on exertion. No shortness of breath while lying down. No history of heart murmur. Patient reports no cough, no wheezing or coughing up blood. Patient reports no abdominal pain, no vomiting. Normal appetite. No diarrhea and not vomiting blood. No nausea and no constipation. Patient reports no incontinence. No difficulty urinating. No hematuria. No increased frequency. Patient reports no muscle aches. No weakness, no arthralgias, no back pain. No swelling of the extremities. Patient reports no abnormal mole, no jaundice, no rashes. Reports no loss of consciousness. No weakness and no numbness. No seizures, dizziness, or headaches. The patient reports no depression, no sleep disturbance, feeling safe in a relationship and no alcohol abuse. Patient reports on fatigue. Reports no runny nose or sinus pressure. No itching, no hives, and no frequent sneezing. PHYSICAL EXAMINATION: GENERAL: Pleasant. No acute distress, appears stated age. VITAL SIGNS: Blood pressure 126/61, pulse 84 and regular. HEENT: Normocephalic. NECK: No JVD or bruit. HEART: Regular, II-III/ systolic ejection murmur. LUNGS: Good air excursion. CONSULT REPORT [id number] KOROYA GUILLAUMEN ABDOMEN: Soft, nontender. EXTREMITIES: Pulses 2+. There is no edema. IMPRESSION: Acute coronary syndrome. PLAN: Angiography intervention based on the above. TRANSINT:[id number] Voice Confirmation ID: [id number] DOCUMENT ID: [id number] LINDA AGUILAR MD at 0859 CC: [id number] DICTATION DATE: 06/04/20 115 SOFTWARE DESIGN ANALYST: 06/04/200 DIS IN 06/05/[address] [facility] [address] [place] [address]
--- NOTE | 2020-06-06 08:59 | OP ---
PATIENT NAME: ROYA CONNELL MEDICAL RECORD: [id number] :50 LOCATION:D.M2 D.2108 ADMISSION DATE:06/04/20 SURGEON: LINDA AGUILAR MD DATE OF OPERATION: 06/05/2020 PROCEDURE: Left heart cath, selective coronary angiography, right femoral artery approach. CATHETERS: A 5-Czech sheath, 5/4 left and right Todd, 5/4 pig. The procedure was well tolerated. The patient was returned to the vela after Perclose was placed to the Impella device. FINDINGS: Left ventriculography in 30-degree ROJAS view shows severe global hypokinesis, reduced EF 20%. CORONARY ANATOMY: LEFT MAIN: Left main is free of disease. LAD: LAD previous stenting is widely patent without evidence of restenosis. CIRCUMFLEX: Free of disease. RIGHT CORONARY ARTERY: Shows an ostial lesion high risk with JOYCE flow 2 distally. At this point in time, a decision was made to place Impella device for short term external heart assist intraoperative procedure approach to assist with cardiac output using the Impella pump continuously. This was placed in a stepwise fashion with dilation at 8, 10, 12, 5, 14-Czech sheath having placed in left ventricle after adequate outputs were obtained. Then, using the same 14-Czech sheath, we placed a hockey stick guide catheter in the right coronary ostium. Wire used was a [employer] wire. Pre-deployment balloon was a 3-0 [place]. Stent deployed was a 3.5 x 12 mm [place] drug-eluting stent up to 14 atmospheres. Final angiography shows excellent resolution of a 90% plus ostial stenosis right to no significant residual. JOYCE flow improved from 2 to 3. The Impella was then weaned down and withdrawn and closed percutaneously with a Perclose device as well as manual pressure. The patient returned to the vela in stable condition. TRANSINT:[id number] Voice Confirmation ID: [id number] DOCUMENT ID: [id number] LINDA AGUILAR MD at 0859 CC: [id number] DICTATION DATE: 06/05/20 1141 TRAY LINE WORKER: 06/05/202129 DIS IN 06/05/20 [place] [id number] [place] [address]
--- NOTE | 2020-06-06 08:59 | EC ---
PATIENT:ROYA CONNELL DATE OF SERVICE: 06/04/20 SEX: F MEDICAL RECORD: [id number] DATE OF : 50 LOCATION:D.M2 D.210 AGE OF PATIENT: 69 ADMISSION DATE: 06/04/20 REFERRING PHYSICIAN: INTERPRETING PHYSICIAN: LINDA AGUILAR MD ECHOCARDIOGRAM REPORT ECHO CHARGES 4 ECHO COMPLETE Date: 06/04/20 CLINICAL DIAGNOSIS: NSTEMI HX OF CAD/HTN ECHOCARDIOGRAPHIC MEASUREMENTS (adult normal given) AC root (d.<3.7cm) 2.9 cm LV Septum d (<1.2 cm> 1.2 cm Valve Excursion cm LV Septum (systole) 1.3 cm Left Atria (s.<4.0cm> 3.8 cm LVPW d(<1.2cm) 1.4 cm RV (d.<2.3cm) 3.3 cm LVPW (sytole) 1.5 cm LV diastole(<5.6CM) 4.8 cm MV E-F(>70mm/sec) cm LV systole 3.9 cm LVOT Diameter 2.3 cm MV exc.(>10mm) 1.3 cm Est.ejection fraction (50-75%) % DOPPLER: LVIT cm/sec A 93.0 cm/sec E 73.0 cm/sec LA cm/sec RVSP 22 mmHg LVOT 58 cm/sec AOP1/2T m/s Asc. Ao 216 cm/sec RVOT 116 cm/sec RA cm/sec PA 175 cm/sec AV Gradient Peak 18.73mmHg AV Mean 12.09mmHg AV Area 1.4 cm MV Gradient Peak 4.23 mmHg MV Mean 1.23 mmHg MV Area cm COMMENTS: Morphologist: 2 MANJINDER BELLAMY Locomotive Driver: 3 Dr. Oscar TAPE# PACS Pericardial Effusion N DATE OF SERVICE: Adequate 2D, color flow imaging, spectral Doppler, and M-Mode. Mild LVH. LV internal dimensions are normal. LV is globally diffusely hypokinetic with reduced EF, estimated 30% to 35%. Aortic valve is sclerosed without evidence of stenosis by Doppler interrogation. There is no significant AI by color flow imaging. Left atrium is normal at 3.8 cm. Mitral valve shows no prolapse. Trace MR. Right-sided chambers are grossly normal. Mild TR. TRANSINT:[id number] Voice Confirmation ID: [id number] DOCUMENT ID: [id number] ECHOCARDIOGRAM REPORT [id number] ROYA CONNELL,LINDA Nicole MD at 0859 CC: [id number] DICTATION DATE: 06/05/20 1224 ASSEMBLER FLUORESCENT LIGHTS: 06/05/202150 DIS IN 06/05/20 [place] [id number] [place] [id number]
== END 2020-06-05 16:36 | disposition home or self-care (01) | DRG 215 ==
LOC: D.ER 22:55 → D.EDHOLD 06-04 00:09 → D.M2 06-04 00:09
PROVIDERS: Emergency Medicine; Family Medicine Adult Medicine; Internal Medicine Interventional Cardiology; ADMIT Family Medicine; ATTEND Family Medicine
PROC: 027034Z Dilation of Coronary Artery, One Artery with Drug-eluting Intraluminal Device, Percutaneous Approach (ICD-10-PCS; 2020-06-05)
PROC: 4A023N7 Measurement of Cardiac Sampling and Pressure, Left Heart, Percutaneous Approach (ICD-10-PCS; 2020-06-05)
PROC: B2111ZZ Fluoroscopy of Multiple Coronary Arteries using Low Osmolar Contrast (ICD-10-PCS; 2020-06-05)
PROC: B2151ZZ Fluoroscopy of Left Heart using Low Osmolar Contrast (ICD-10-PCS; 2020-06-05)
PROC: 02HA3RJ Insertion of Short-term External Heart Assist System into Heart, Intraoperative, Percutaneous Approach (ICD-10-PCS; principal; 2020-06-05 08:53)
PROC: 5A0221D Assistance with Cardiac Output using Impeller Pump, Continuous (ICD-10-PCS; 2020-06-05 08:53)
DX: I25.10 Atherosclerotic heart disease of native coronary artery without angina pectoris (principal); J96.01 Acute respiratory failure with hypoxia; J90 Pleural effusion, not elsewhere classified; I24.9 Acute ischemic heart disease, unspecified; R59.1 Generalized enlarged lymph nodes; E11.65 Type 2 diabetes mellitus with hyperglycemia; E03.9 Hypothyroidism, unspecified; I11.0 Hypertensive heart disease with heart failure; I50.9 Heart failure, unspecified; E78.5 Hyperlipidemia, unspecified

== ENCOUNTER 2021-02-26 20:27 | Emergency (ER) | payer MEDICARE ==
[~2021-02-26] VITALS: Ht 157.5 cm; Wt 81.8 kg
[~2021-02-26 20:27] MED LIST changes: +ZOCOR20 MG PO
[2021-02-26 20:38] VITALS: Ht 157.5 cm; Wt 81.8 kg
[2021-02-26 21:38] LABS: CALC OSMOLALITY 288 mosm/kg (275-300); CALCIUM 8.3 mg/dL (8.5-10.1); CARBON DIOXIDE 27.2 mmol/L (21.0-32.0); CHLORIDE - SERUM 107 mmol/L (98-107); GLUCOSE 133 mg/dL (74-106); POTASSIUM - SERUM 4.2 mmol/L (3.5-5.1); SODIUM 142 mmol/L (136-145); UREA NITROGEN 24 mg/dL (7-18); eGFR NON AFRICAN AMERICAN 58 mL/min (90-120)
[2021-02-26 21:39] LABS: BASOPHILS 1.2 % (0-2); EOSINOPHILS 3.2 % (0-7); HEMATOCRIT 36.3 % (36.0-48.0); HEMOGLOBIN 11.4 g/dL (12-16); LYMPHOCYTES 18.3 % (15-50); MCH 24.5 pg (26.0-34.0); MCHC 31.3 g/dL (31.0-37.0); MCV 78.3 fL (80.0-100.0); MEAN PLATELET VOLUME 8.4 fL (7.4-10.4); MONOCYTES 5.6 % (2-11); NEUTROPHILS 71.7 % (40-80); PLATELET COUNT 263 10x3/uL (130-400); RBC 4.64 10x6/uL (4.00-5.40); RDW 16.4 % (11.5-14.5); WBC 7.2 10x3/uL (4.8-10.8)
[2021-02-26 21:56] LABS: ALBUMIN 3.8 g/dL (3.4-5.0); ALKALINE PHOSPHATASE 87 U/L (30-120); ALT (SGPT) 36 U/L (10-68); BILIRUBIN - TOTAL 0.37 mg/dL (0.2-1.3); CKMB 1.5 U/L (0.0-3.6); CREATINE KINASE 63 UL (21-215); PRO BNP 1733 pg/mL (0-125); PROTEIN - SERUM 7.6 g/dL (6.4-8.2); TROPONIN-I 0.034 ng/mL (0.000-0.060)
[2021-02-26 23:20] VITALS: BP 139/83
== END 2021-02-26 23:21 | disposition home or self-care (01) ==
LOC: D.ER 20:27
PROVIDERS: Family Medicine
DX: J98.4 Other disorders of lung (principal); I50.9 Heart failure, unspecified; R06.02 Shortness of breath; E11.9 Type 2 diabetes mellitus without complications; I11.0 Hypertensive heart disease with heart failure; E78.5 Hyperlipidemia, unspecified; J44.9 Chronic obstructive pulmonary disease, unspecified; Z79.82 Long term (current) use of aspirin